=== PATIENT | male | born 1965 ===

== ENCOUNTER 2020-11-23 14:01 | Emergency (ER) | payer OTHER, SELFPAY ==
--- NOTE | 2020-11-23 14:18 | ED.GENADULT ---
HPI - General Adult General Chief complaint: Cardiac Arrest/CPR Stated complaint: Cardiac Arrest Time Seen by Provider: 11/23/20 14:16 Source: family (, Mehnaz , ) and EMS Mode of arrival: EMS Limitations: other (Cardiac arrest) History of Present Illness HPI narrative: 55-year-old male brought to the emergency department by paramedics for evaluation of respiratory/cardiac arrest. The information came from the paramedics. The paramedics were contacted for a patient with shortness of breath that is COVID positive. When they arrived to the patient's home, he appeared acutely ill. He was cyanotic and his O2 saturation was 35% on room air. He was tachypneic and tachycardic. The paramedics transfer the patient to a transfer chair any went into cardiac arrest. He initially was tachycardic and then asystolic. The paramedics were able to establish and I 0 any received CPR and 3 rounds of epinephrine through the IO. His respirations were assisted with a bag-valve mask. The patient remained asystolic throughout the 30-45 minutes of pre-hospital care. On arrival to the emergency department the patient was cyanotic, he was pulseless. His initial rhythm was asystole. Given his presentation and the fact that he has COVID-19 leading to his respiratory rest, I did not think that any further intervention would be appropriate. The patient was pronounced at 2:05 p.m. According to the paramedics, the patient was sick for approximately 10 days, he was tested for COVID-19 on 11/16/2020 and got a positive result several days after being tested. Review of Systems Review of Systems: Yes Unobtainable due to mental status PMFSH Social History Social History Advance Directives: No Advance Directives Information Provided: No Physical Exam Const: Other: Unresponsive, pulseless, cyanotic General: other HENMT: Other: No evidence of trauma Eyes: Other: Pupils are fixed and dilated Neck: Other: No evidence of trauma Chest: Other: No spontaneous respirations or chest movement, no evidence of trauma Resp: Other: No spontaneous respiration Cardio: Other: No heart sounds on auscultation GI: Other: No evidence trauma, obese, no bowel sounds Back/Spine/Pelvis: Other: No evidence of trauma Skin: Other: Cyanotic Neuro: Other: No spontaneous movement Extrem: Other: No evidence of trauma Course Course Course Narrative: 55-year-old male who presented to the emergency department for evaluation of respiratory arrest. The patient is known to be COVID-19 positive, when the paramedics found the patient at his home he was cyanotic, tachycardic, tachypneic and had an O2 saturation of 35% on room air. He rapidly deteriorated and went into cardiac arrest initially PEA followed by asystole. Paramedics assisted the patient's respirations with a bag valve mask and gave him epinephrine x3 IO. In the emergency department on arrival, the patient was cyanotic he had no palpable pulses, the initial rhythm was asystole. Given his COVID 19 positive status, his asystole and 30-45 minutes of unsuccessful resuscitation of the field, the patient was pronounced without any further intervention. Time of is 2:05 p.m. 1506: I did reach the patient's , Mehnaz at . She states that her was sick for 3 weeks, getting worse over the past week. She states that he was short of breath on and off and was feeling very fatigued. Today he was more short of breath and more lethargic therefore the called an ambulance. I did inform the patient's of the patient's . She does not want to come in and see the patient at this time and states that she will contact the home to make arrangements with the hospital. I did discuss the patient's presentation with the medical practice manager specialist, Corrine Leal. The medical practice manager's office declined jurisdiction of this case. Case #[id number] The following will be listed as cause of : COVID-19 pneumonia causing hypoxia causing pulses electrical activity causing asystolic cardiac arrest Critical Care Time Critical Care Time Total Critical Care Time: 30 Attestation: Critical Care: The patient was critically ill with a high probability of imminent or life threatening deterioration. I spent greater than 30 minutes of discontinuous time evaluating the patient,delivering critical care at the bedside, discussing and evaluating pertinent data with medical practice manager. Critical care time does not include time spent performing separately billable procedures or teaching. Total time spent performing critical care was 30minutes. Discharge Plan Discharge Clinical Impression: Asystole, Cardiac arrest, Pneumonia due to 2019-nCoV, Hypoxic Patient Disposition:
--- NOTE | 2020-11-23 14:24 | PC.NURSE ---
[employer] notified/declined due to covid positive status,
--- NOTE | 2020-11-23 16:12 | PC.NURSE ---
carlos [phone] was notified by provider and stated she will call back with a home per provider. medical insurance verifier declined per provider.
== END 2020-11-23 16:30 | disposition expired ==
PROVIDERS: Emergency Provider Emergency Medicine Emergency Medical Services
DX: I46.9 Cardiac arrest, cause unspecified (principal); U07.1 COVID-19
CPT/HCPCS: 99283